=== PATIENT | female | born 1995 | race African-American/Black ===

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

== ENCOUNTER 2017-08-15 00:11 | Emergency (ER) | payer OTHER, BC ==
[~2017-08-15] VITALS: Ht 157.5 cm; Wt 95.5 kg
[~2017-08-15 00:11] MED LIST changes: +IBUP1TAB7 PO; -IBUP800T23 PO
[2017-08-15 00:19] VITALS: BP 135/63; PULSE 98; RESP 18; TEMP 97.7; O2SAT 96
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
[2017-08-15 04:00] VITALS: BP 127/71; PULSE 77; RESP 18; O2SAT 99
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
== END 2017-08-15 05:08 | disposition home or self-care (01) ==
LOC: NEPD 00:11
DX: S16.1XXA Strain of muscle, fascia and tendon at neck level, initial encounter (principal); S39.012A Strain of muscle, fascia and tendon of lower back, initial encounter; V49.50XA Passenger injured in collision with unspecified motor vehicles in traffic accident, initial encounter; Y92.488 Other paved roadways as the place of occurrence of the external cause
CPT/HCPCS: 72125; 84703